=== PATIENT | female | born 1965 | race Caucasian/White ===

== ENCOUNTER 2017-01-20 21:39 | Emergency (ER) | payer OTHER ==
[~2017-01-20] VITALS: Ht 162.6 cm; Wt 90.7 kg
[~2017-01-20 21:39] MED LIST: AMLODIPINE BESY10 MG PO; ASPIRIN EC81 M1 PO; EFFIENT10 MG PO; LIPITOR 20 MG T20 M1 PO; METFORMIN HCL500 MG PO; NORVASC10 MG PO; PRINIVIL10 MG PO; PRINIVIL20 MG PO; PROVENTIL HFA6.7 G1 INH; TOPROL XL100 MG PO; TUSSIONEX PENN473 ML PO
[2017-01-20 22:47] LABS: ABSOLUTE NEUTROPHILS 5.1 thou/uL (1.4-8.2); BASOPHILS 0.7 % (0.0-2.0); EOSINOPHILS 1.6 % (0.0-3.0); HEMATOCRIT 40.6 % (37.0-47.0); HEMOGLOBIN 13.8 gm/dL (12.0-15.0); LYMPHOCYTES 36.9 % (24.0-44.0); MCH 30.8 pg (26.0-34.0); MCHC 33.9 g/dL (28.0-37.0); MCV 90.6 fL (80.0-100.0); MONOCYTES 8.3 % (1.0-8.0); PLATELET COUNT 213 thou/uL (150-400); POLYS 52.5 % (36.0-66.0); RBC 4.48 mil/uL (4.20-5.00); RDW 12.9 % (10.5-14.5); WBC 9.8 thou/uL (4.0-11.0)
[2017-01-20 22:48] LABS: MANUAL DIFF NO
[2017-01-20 23:02] LABS: APTT 21.3 Seconds (24.5-32.8); PROTIME 9.6 Seconds (9.3-11.4)
== END 2017-01-20 23:50 | disposition home or self-care (01) ==
LOC: ER 21:39
PROVIDERS: Physician Assistant
DX: M96.841 Postprocedural hematoma of a musculoskeletal structure following other procedure (principal); I10 Essential (primary) hypertension; Z90.49 Acquired absence of other specified parts of digestive tract; Z98.890 Other specified postprocedural states; Z96.21 Cochlear implant status; Z88.0 Allergy status to penicillin; Z88.8 Allergy status to other drugs, medicaments and biological substances

== ENCOUNTER 2017-05-18 06:12 | Emergency (ER) | payer OTHER ==
[~2017-05-18] VITALS: Ht 162.6 cm; Wt 86.2 kg
[2017-05-18] MEDS ORDERED: AZITHROMYCIN 2250 MG PO (07:06)
== END 2017-05-18 07:07 | disposition home or self-care (01) ==
LOC: ER 06:12
DX: J18.8 Other pneumonia, unspecified organism (principal); I10 Essential (primary) hypertension; Z96.21 Cochlear implant status; Z98.890 Other specified postprocedural states; Z88.1 Allergy status to other antibiotic agents; Z88.0 Allergy status to penicillin; Z95.5 Presence of coronary angioplasty implant and graft; Z79.82 Long term (current) use of aspirin

== ENCOUNTER 2018-09-16 15:51 | Emergency (ER) | payer OTHER ==
[~2018-09-16] VITALS: Ht 165.1 cm; Wt 104.3 kg
--- NOTE | ~2018-09-16 | EKG ---
[address] [place] [address] ELECTROCARDIOGRAM REPORT Name: GODFREYBLAIR Moore Room #: [facility]#: [id number] Admission: 09/16/18 Attend Phys: Discharge: 09/16/18 Date of : 69 Report #: [id number] THIS REPORT FOR: //name// [facility] ED Test Date: 2018-09-16 Test Time: 16:03:55 Pat Name: BLAIR DONAHUE Department: Room: Gender: F Windows Desktop Support: [facility] : 1965 Requested By: Raul Donaldson Order Number: [id number] MD: Maverick Alonzo Measurements Intervals [place] Rate: 82 P: 42 CO: 130 QRS: 18 QRSD: 97 T: 36 QT: 437 QTc: 511 Interpretive Statements Sinus rhythm Prolonged QT interval Nonspecific ST and T wave abnormality Compared to ECG 11/11/2016 07:05:30 Prolonged QT interval now present Electronically Signed On 09-17-2018 8:51:22 ROUTE SALES MANAGER by Maverick Alonzo [email or web address] <ELECTRONICALLY SIGNED> By: Maverick Alonzo MD, [facility] 09/17/18 0851 1603 160 Maverick Alonzo MD, FAC /EPI
[~2018-09-16 15:51] MED LIST changes: +AZITHROMYCIN 2250 MG PO
[2018-09-16 16:43] LABS: BASOPHILS 0.3 % (0.0-2.0); EOSINOPHILS 2.1 % (0.0-3.0); HEMATOCRIT 44.3 % (37.0-47.0); HEMOGLOBIN 15.4 gm/dL (12.0-15.0); LYMPHOCYTES 24.2 % (24.0-44.0); MCH 31.3 pg (26.0-34.0); MCHC 34.7 g/dL (28.0-37.0); MCV 90.2 fL (80.0-100.0); MONOCYTES 8.2 % (1.0-8.0); PLATELET COUNT 231 thou/uL (150-400); POLYS 65.2 % (36.0-66.0); RBC 4.91 mil/uL (4.20-5.00); RDW 12.5 % (10.5-14.5); WBC 7.7 thou/uL (4.0-11.0)
[2018-09-16 16:57] LABS: ANION GAP 11 mmol/L (7-16); BUN 16 mg/dL (7-18); CALCIUM 8.5 mg/dL (8.5-10.1); CHLORIDE 99 mmol/L (98-107); CO2 26 mmol/L (21-32); CREATININE 0.8 mg/dL (0.6-1.0); SODIUM 136 mmol/L (136-145)
[2018-09-16 17:01] LABS: GLUCOSE 331 mg/dL (74-106); POTASSIUM 3.7 mmol/L (3.5-5.1)
[2018-09-16 17:18] LABS: TROPONIN-I <0.06 ng/mL (<0.06)
[2018-09-16 19:01] VITALS: BP 159/101
== END 2018-09-16 19:03 | disposition left against medical advice (07) ==
LOC: ER 15:51
PROVIDERS: Emergency Medicine
DX: R07.89 Other chest pain (principal); I10 Essential (primary) hypertension; E11.9 Type 2 diabetes mellitus without complications; Z88.6 Allergy status to analgesic agent; Z88.0 Allergy status to penicillin; Z90.49 Acquired absence of other specified parts of digestive tract; Z95.5 Presence of coronary angioplasty implant and graft

== ENCOUNTER 2019-04-11 13:55 | Emergency (ER) | payer OTHER ==
[~2019-04-11] VITALS: Ht 162.6 cm; Wt 88.9 kg
[2019-04-11 14:59] LABS: HEMATOCRIT 42.5 % (37.0-47.0); HEMOGLOBIN 14.3 gm/dL (12.0-15.0); MCH 30.1 pg (26.0-34.0); MCHC 33.6 g/dL (28.0-37.0); MCV 89.7 fL (80.0-100.0); PLATELET COUNT 268 thou/uL (150-400); RBC 4.74 mil/uL (4.20-5.00); RDW 12.5 % (10.5-14.5); WBC 4.3 thou/uL (4.0-11.0)
[2019-04-11 15:06] LABS: ANION GAP 11 mmol/L (7-16); BUN 15 mg/dL (7-18); CALCIUM 8.8 mg/dL (8.5-10.1); CHLORIDE 96 mmol/L (98-107); CO2 24 mmol/L (21-32); CREATININE 1.1 mg/dL (0.6-1.0); GLUCOSE 334 mg/dL (74-106); POTASSIUM 3.8 mmol/L (3.5-5.1); SODIUM 131 mmol/L (136-145)
[2019-04-11 15:17] LABS: ALBUMIN 3.2 g/dL (3.4-5.0); MAGNESIUM 1.7 mg/dL (1.8-2.4); SGOT 50 U/L (15-37); SGPT 53 U/L (30-65); TOTAL BILIRUBIN 0.3 mg/dL (<0.1-1.0); TOTAL PROTEIN 8.3 g/dL (6.4-8.2); TROPONIN-I <0.06 ng/mL (<0.06)
[2019-04-11 15:34] LABS: ANISOCYTOSIS 1+; METAMYELOCYTES 1 %
[2019-04-11 16:14] LABS: URINE BILIRUBIN NEGATIVE (Negative); URINE BLOOD TRACE (Negative); URINE CLARITY CLOUDY; URINE COLOR YELLOW; URINE GLUCOSE-RANDOM* 2+ (Negative); URINE KETONES NEGATIVE (Negative); URINE LEUKOCYTES-REFLEX TRACE (Negative); URINE NITRITE-REFLEX NEGATIVE (Negative); URINE PROTEIN (DIPSTICK) 1+ (Negative); URINE SPECIFIC GRAVITY >= 1.030 (1.005-1.035); URINE UROBILINOGEN 0.2 E.U./dl (0.2-1.0)
[2019-04-11 16:21] LABS: CASTS None Seen /LPF (None Seen); SQUAMOUS 4-10 Moderate /LPF (0-3); YEAST-REFLEX Present (None Seen)
[2019-04-11 16:22] LABS: AMORPHOUS URATES Moderate /LPF (None Seen); BACTERIA-REFLEX 1-9 Few /HPF (None Seen); URINE RBC 0-2 Rare /HPF (0-2); URINE WBC-REFLEX 0-5 Rare /HPF (0-5)
[2019-04-11] MEDS ORDERED: CEFDINIR300 MG PO (16:46)
[2019-04-11] MEDS ORDERED: TRAMADOL 50 MG50 MG PO (16:46)
[2019-04-11] MEDS ORDERED: METFORMIN HCL500 MG PO (16:57)
[2019-04-11 18:00] VITALS: BP 115/62
--- NOTE | 2019-04-12 07:26 | EKG ---
[place] [address] [facility] [address] ELECTROCARDIOGRAM REPORT Name: BLAIR DONAHUE Room #: DEP [facility]#: [id number] ������������������ Admission: 04/11/19 ������������������ Attend Phys: Discharge: 04/11/19 ������������������ Date of : 69 Report #: [id number] ����������������������������������������������������������������� [id number] THIS REPORT FOR: //name// [facility] ED Test Date: 2019-04-11 Test Time: 15:42:37 Pat Name: BLAIR DONAHUE Department: Room: Gender: F Parts Counter Clerk: : 1965 Requested By: Guanako Archuleta Order Number: [id number] MD: Maverick Alonzo Measurements Intervals [place] Rate: 88 P: 55 MN: 122 QRS: 34 QRSD: 100 T: -67 QT: 355 QTc: 430 Interpretive Statements Sinus rhythm Nonspecific ST and T wave abnormality Compared to ECG 09/16/2018 16:03:55 No significant change was found Electronically Signed On 04-12-2019 7:26:08 CDT by Maverick Alonzo [email or web address] ��������������������������������������������� <ELECTRONICALLY SIGNED> ���������������������������������������� By: Maverick Alonzo MD, [facility] ��������������������������������������������� 04/12/19 0726 1542 154 Maverick Alonzo MD, FAC /EPI
== END 2019-04-11 18:01 | disposition home or self-care (01) ==
LOC: ER 13:55
PROVIDERS: Emergency Medicine
DX: L03.115 Cellulitis of right lower limb (principal); E11.9 Type 2 diabetes mellitus without complications; R74.0 Nonspecific elevation of levels of transaminase and lactic acid dehydrogenase [LDH]; I10 Essential (primary) hypertension; R05 Cough; R06.02 Shortness of breath; R06.2 Wheezing; M54.5 Low back pain; Z96.651 Presence of right artificial knee joint; Z88.6 Allergy status to analgesic agent; Z88.0 Allergy status to penicillin; Z90.49 Acquired absence of other specified parts of digestive tract

== ENCOUNTER 2019-04-14 15:41 | Emergency (ER) | payer OTHER ==
[~2019-04-14] VITALS: Ht 162.6 cm; Wt 85.3 kg
[~2019-04-14 15:41] MED LIST changes: +CEFDINIR300 MG PO; +TRAMADOL 50 MG50 MG PO
[2019-04-14 16:28] LABS: HEMATOCRIT 42.3 % (37.0-47.0); HEMOGLOBIN 14.3 gm/dL (12.0-15.0); MCHC 33.8 g/dL (28.0-37.0); MCV 88.6 fL (80.0-100.0); PLATELET COUNT 234 thou/uL (150-400); RBC 4.77 mil/uL (4.20-5.00); RDW 12.9 % (10.5-14.5); WBC 4.5 thou/uL (4.0-11.0)
[2019-04-14 16:34] LABS: ANION GAP 12 mmol/L (7-16); BUN 13 mg/dL (7-18); CALCIUM 9.4 mg/dL (8.5-10.1); CHLORIDE 95 mmol/L (98-107); CO2 25 mmol/L (21-32); CREATININE 0.8 mg/dL (0.6-1.0); GLUCOSE 285 mg/dL (74-106); POTASSIUM 3.6 mmol/L (3.5-5.1); SODIUM 132 mmol/L (136-145)
[2019-04-14 16:44] LABS: ALBUMIN 3.2 g/dL (3.4-5.0); DIRECT BILIRUBIN 0.1 mg/dL (<0.1-0.3); SGOT 37 U/L (15-37); SGPT 42 U/L (30-65); TOTAL BILIRUBIN 0.2 mg/dL (<0.1-1.0); TOTAL PROTEIN 8.6 g/dL (6.4-8.2); TROPONIN-I <0.06 ng/mL (<0.06)
[2019-04-14 16:52] LABS: URINE BILIRUBIN NEGATIVE (Negative); URINE BLOOD TRACE (Negative); URINE CLARITY CLEAR; URINE COLOR YELLOW; URINE GLUCOSE-RANDOM* 3+ (Negative); URINE KETONES NEGATIVE (Negative); URINE LEUKOCYTES-REFLEX NEGATIVE (Negative); URINE NITRITE-REFLEX NEGATIVE (Negative); URINE PROTEIN (DIPSTICK) TRACE (Negative); URINE SPECIFIC GRAVITY >= 1.030 (1.005-1.035); URINE UROBILINOGEN 0.2 E.U./dl (0.2-1.0)
[2019-04-14 16:57] LABS: ABSOLUTE NEUTROPHILS 2.8 thou/uL (1.4-8.2)
[2019-04-14] MEDS ORDERED: ANTIVERT25 MG PO (17:58)
[2019-04-14 18:05] VITALS: BP 150/78
--- NOTE | 2019-04-15 07:47 | EKG ---
[place] [address] [facility] [employer] [place] [address] ELECTROCARDIOGRAM REPORT Name: BLAIR DONAHUE Room #: DEP [facility]#: [id number] ������������������ Admission: 04/14/19 ������������������ Attend Phys: Discharge: 04/14/19 ������������������ Date of : 69 Report #: [id number] ����������������������������������������������������������������� [id number] THIS REPORT FOR: //name// [facility] ED Test Date: 2019-04-14 Test Time: 16:09:59 Pat Name: BLAIR DONAHUE Department: Room: Gender: F [employer] Sawyer: DINORAH : 1965 Requested By: Joanne Valentine Order Number: [id number] MD: Maverick Alonzo Measurements Intervals [place] Rate: 80 P: 43 CO: 134 QRS: 17 QRSD: 89 T: -11 QT: 382 QTc: 441 Interpretive Statements Sinus rhythm Nonspecific ST and T wave abnormality Compared to ECG 04/11/2019 15:42:37 No significant change was found Electronically Signed On 04-15-2019 7:46:57 CDT by Maverick Alonzo [email or web address] ��������������������������������������������� <ELECTRONICALLY SIGNED> ���������������������������������������� By: Maverick Alonzo MD, [facility] ��������������������������������������������� 04/15/19 0746 1609 1609 Maverick Alonzo MD, [facility] /EPI
== END 2019-04-14 18:05 | disposition home or self-care (01) ==
LOC: ER 15:41
PROVIDERS: Emergency Medicine
DX: I95.1 Orthostatic hypotension (principal); R42 Dizziness and giddiness; R73.9 Hyperglycemia, unspecified; I10 Essential (primary) hypertension; Z90.49 Acquired absence of other specified parts of digestive tract; Z95.5 Presence of coronary angioplasty implant and graft; Z88.0 Allergy status to penicillin; Z88.8 Allergy status to other drugs, medicaments and biological substances

== ENCOUNTER → 2019-10-11 | Outpatient (CLI) | payer OTHER ==
[~2019-10-11] MED LIST changes: +ANTIVERT25 MG PO; +CLEOCIN HCL150 MG PO
== END ==
LOC: SJCVC 15:31
DX: I25.10 Atherosclerotic heart disease of native coronary artery without angina pectoris (principal); R94.31 Abnormal electrocardiogram [ECG] [EKG]; I10 Essential (primary) hypertension; E11.9 Type 2 diabetes mellitus without complications; E78.5 Hyperlipidemia, unspecified; I25.2 Old myocardial infarction; Z79.82 Long term (current) use of aspirin; Z79.899 Other long term (current) drug therapy; Z88.0 Allergy status to penicillin; Z88.8 Allergy status to other drugs, medicaments and biological substances

== ENCOUNTER 2019-11-23 14:35 | Emergency (ER) | payer OTHER ==
[~2019-11-23] VITALS: Ht 162.6 cm; Wt 83.9 kg
[~2019-11-23 14:35] MED LIST changes: -CLEOCIN HCL150 MG PO
[2019-11-23] MEDS ORDERED: CLEOCIN HCL150 MG PO (15:07)
[2019-11-23 15:25] VITALS: BP 175/102
== END 2019-11-23 15:26 | disposition home or self-care (01) ==
LOC: ER 14:35
DX: K02.9 Dental caries, unspecified (principal); I10 Essential (primary) hypertension; Z90.49 Acquired absence of other specified parts of digestive tract; Z96.651 Presence of right artificial knee joint

== ENCOUNTER 2019-12-06 22:44 | Inpatient (IN) | payer OTHER ==
[~2019-12-06] VITALS: Ht 162.6 cm; Wt 81.6 kg
[~2019-12-06 22:44] MED LIST changes: +CLEOCIN HCL150 MG PO
[2019-12-06 22:45] VITALS: BP 150/78
[2019-12-06 23:36] LABS: ABSOLUTE NEUTROPHILS 4.1 thou/uL (1.4-8.2); BASOPHILS 1.5 % (0.0-2.0); EOSINOPHILS 4.1 % (0.0-3.0); HEMOGLOBIN 15.5 gm/dL (12.0-15.0); LYMPHOCYTES 30.9 % (24.0-44.0); MCH 30.3 pg (26.0-34.0); MCV 91.9 fL (80.0-100.0); MONOCYTES 6.5 % (1.0-8.0); PLATELET COUNT 229 thou/uL (150-400); RBC 5.12 mil/uL (4.20-5.00); RDW 12.5 % (10.5-14.5); WBC 7.2 thou/uL (4.0-11.0)
[2019-12-06 23:40] LABS: CALCIUM 8.9 mg/dL (8.5-10.1); CREATININE 0.9 mg/dL (0.6-1.0); POTASSIUM 4.3 mmol/L (3.5-5.1)
[2019-12-07 03:18] VITALS: BP 105/51
[2019-12-07 03:31] VITALS: BP 105/51
[2019-12-07 06:31] VITALS: BP 108/75; BP 118/71
[2019-12-07] MEDS ORDERED: MECLIZINE HCL25 MG PO (09:04)
[2019-12-07 09:56] VITALS: BP 118/72
[2019-12-07 09:57] VITALS: BP 108/75
--- NOTE | 2019-12-07 10:08 | NUR ---
ASSUMED CARE AT SHIFT CHANGE ASSESSMENT DOUMMENTED. DENEIS ANY PAIN OR DISCOMFOERT, AN VSS. S/B DR JOSHUA AND HE INSTRUCTED TO GIVE PATIENT MEDICATION BEFORE DISCHARGE, MEDS GIVEN AND UTILIZED THE OVERRIDE METHOD BECAUSE OF PYXIS NOT WORKING. PATIENT GIEVN WRITTEN DISCHARGE AND MEDICATION INSTRUCTION, AND PATIENT WILL BE DISCHARGED WHEN FAMILY GETS HERE.
--- NOTE | 2019-12-07 10:28 | EKG ---
[facility] [place] [address] ELECTROCARDIOGRAM REPORT Name: BLAIR DONAHUE Room #: 208-P ADM IN M.R.#: [id number] Admission: 12/07/19 Attend Phys: Jake Bray MD Discharge: Date of : 69 Report #: [id number] THIS REPORT FOR: cc: FAM - No family physician/PCP FAM - No family physician/PCP Maverick Alonzo MD [facility] ~ THIS REPORT FOR: //name// [facility] ED Test Date: 2019-12-06 Test Time: 23:59:13 Pat Name: BLAIR DONAHUE Department: Room: 208 Gender: F Alarm Security Or Surveillance Monitor: : 1965 Requested By: Ed Bunch Order Number: [id number] MD: Maverick Alonzo Measurements Intervals [place] Rate: 58 P: 45 MD: 137 QRS: 18 QRSD: 99 T: 21 QT: 428 QTc: 421 Interpretive Statements Sinus bradycardia Otherwise normal tracing Compared to ECG 04/14/2019 16:09:59 ST (T wave) deviation no longer present Electronically Signed On 12-07-2019 10:27:42 CLERK ANALYST by Maverick Alonzo [email or web address] <ELECTRONICALLY SIGNED> By: Maverick Alonzo MD, [facility] 12/07/19 1027 2359 2359 Maverick Alonzo MD, [facility] /EPI
== END 2019-12-07 10:35 | disposition home or self-care (01) | DRG 149 ==
LOC: ER 22:44 → EROBS 12-07 02:50 → 2N 12-07 03:34
PROVIDERS: Emergency Medicine; ADMIT Hospitalist
DX: H81.02 Meniere's disease, left ear (principal); I10 Essential (primary) hypertension; Z96.21 Cochlear implant status; I25.10 Atherosclerotic heart disease of native coronary artery without angina pectoris; E11.65 Type 2 diabetes mellitus with hyperglycemia; K08.109 Complete loss of teeth, unspecified cause, unspecified class; H91.90 Unspecified hearing loss, unspecified ear; Z82.49 Family history of ischemic heart disease and other diseases of the circulatory system; Z90.49 Acquired absence of other specified parts of digestive tract; Z95.5 Presence of coronary angioplasty implant and graft; Z79.84 Long term (current) use of oral hypoglycemic drugs; Z79.899 Other long term (current) drug therapy; Z79.82 Long term (current) use of aspirin; Z88.0 Allergy status to penicillin; Z88.8 Allergy status to other drugs, medicaments and biological substances
CPT/HCPCS: 10081

== ENCOUNTER 2021-02-16 11:27 | Observation (INO) | payer OTHER ==
[~2021-02-16] VITALS: Ht 162.6 cm; Wt 82.1 kg
[~2021-02-16 11:27] MED LIST changes: +LISINOPRIL10 MG PO; +MECLIZINE HCL25 MG PO; -PRINIVIL10 MG PO
[2021-02-16 12:17] VITALS: BP 163/122
[2021-02-16 12:17] LABS: HEMATOCRIT 44.6 % (37.0-47.0); HEMOGLOBIN 15.1 gm/dL (12.0-15.0); MCHC 33.9 g/dL (28.0-37.0); MCV 91.4 fL (80.0-100.0); RBC 4.88 mil/uL (4.20-5.00); RDW 12.5 % (10.5-14.5); WBC 6.8 thou/uL (4.0-11.0)
[2021-02-16 12:30] LABS: CALCIUM 9.1 mg/dL (8.5-10.1); CREATININE 0.7 mg/dL (0.6-1.0); POTASSIUM 3.8 mmol/L (3.5-5.1)
[2021-02-16 13:09] LABS: CHOLESTEROL 223 mg/dL (<200); HDL CHOLESTEROL 58 mg/dL (>40); LDL CHOLESTEROL 108 mg/dL (<100); TC:HDL 3.8 Ratio (Not establshd); TRIGLYCERIDE 287 mg/dL (<150); VLDL 57 mg/dL (<40)
[2021-02-16 16:38] VITALS: BP 129/71
--- NOTE | 2021-02-16 16:53 | NUR ---
PT ARRIVED TO THE UNIT AROUND 1620 WITH AN RN ESCORT AND HER DAUGHTER BY THE BEDSIDE, PT IS DEAF AND RN COMPLETED THE ADMISSION BEST POSSIBLE. NO COMPLAINT OF HEART PAIN OR ANY PAIN AT ARRIVAL. SITE OF ACCESS FOR PROCEDURE CLEAN DRY INTACT, NO HEMATOMA OR ABNORMALITIES NOTED. VS ARE NORMAL, MEDICATIONS GIVEN. PT WILL BE ABLE TO AMBULATE AROUND 191. RN FOLLOWING, WILL UPDATE NEEDED
[2021-02-16 16:55] VITALS: BP 117/84
--- NOTE | 2021-02-16 17:13 | CATHLAB ---
[facility] [place] [address] INVASIVE PROCEDURE REPORT Name: BLAIR DONAHUE Room #: 211-P ADM IN M.R.#: [id number] Admission: 02/16/21 Attend Phys: Maverick Alonzo MD, Discharge: Date of : 69 Report #: [id number] THIS REPORT FOR: cc: FAM - No family physician/PCP FAM - No family physician/PCP Maverick Alonzo MD [facility] ~ APPROVED REPORT Study performed: 02/16/2021 13:36:13 Patient Details Patient Status: Out-Patient Room #: The patient is a 55 year-old female Event Personnel Maverick Alonzo Ophthalmic Technologist, Gail Soares RTR Scrub, Edwin Torres RN RN, Ethel Gonzalez RTR, CENTRAL SUPPLY TECH Monitor, Юлия Clark RN RN, Jose David William RTR Scrub Procedures Performed Art Access - R femoral artery* Left Heart Cath w/or w/o Coronaries [id number] [facility] [address] [address] w/wo Plasty Single CIRC 768550 [place] [address] w/wo Plasty Single PDA [id number] 47839 Initial Mod Sed Same Phys/QHP Gr5y 037499 01322 Mod Sed Same Phys/QHP Ea 775640 Hemostasis w/ Mynx Indication Chest pain Procedure Narrative The patient was brought electively to the Cardiac Catheterization Laboratory and was prepped and draped in a sterile manner. The Right Groin^ was infiltrated with 1% Lidocaine subcutaneous anesthesia. A PINNACLE 6FR Sheath #[id number] sheath was inserted into the RFA^. Coronary angiography was performed using coronary diagnostic catheters. The right coronary system was accessed and visualized with a JR4 catheter. The left coronary system was accessed and visualized with a JL4 catheter. The left ventricle was accessed and visualized with a ANGLED PIGTAIL catheter. Left ventricular/Aortic Valve gradient assessed via catheter pullback. Left ventriculogram was performed in 30 degree projection. Closure device was deployed with a 6 Fr MYNXGRIP 6/7F #[id number]. The patient tolerated the procedure well and there were no complications associated with the procedure. There was no hematoma. [address] [address] INVASIVE PROCEDURE REPORT Name: JENNIFERJODIBLAIR Room #: 211-P [facility]#: [id number] Admission: 02/16/21 Attend Phys: Maverick Alonzo, Discharge: Date of : 69 Report #: [id number] Intraoperative Conscious Sedation Sedation start time: 14:21 Case end Time: 15:58 Fentanyl 100 mcg Versed 1 mg Fluoro Time: 16.30 minutes Dose: DAP 66875.10 cGycm2 3550 mGy Contrast Type and Amount: Omnipaque 385 ml Coronary Angiography The patient's coronary anatomy is right dominant. Diagnostic Cath Left Main Normal left main LAD Tubular 50% proximal LAD stenosis before a long mid LAD stent. 50% mid to distal intrastent mid LAD stenosis Diagonal 1 Moderately large first diagonal branch with 20-30% proximal plaquing Circumflex Circumflex was moderate in size and nondominant. The distal circumflex exhibited 99% mid vessel stenosis before the origin of the distal marginal branch. OM1 Small, distally arising marginal branch, angiographically normal Right Coronary Dominant right coronary with mild proximal plaquing. R PDA 95% proximal posterior descending branch stenosis followed by an 85% mid vessel stenosis RPLV 50-60% ostial posterior lateral branch stenosis Ramus Moderately large bifurcating ramus branch with mild 10-20% proximal plaquing Left Ventriculography The left ventricle is normal in size with normal contractility. The left ventricular ejection fraction is estimated to be 65-70%. Left ventricular wall motion abnormalities are not present. There is no mitral insufficiency. Hemodynamics The aortic pressure is 140/57 mmHg with a mean of 95 mmHg. The left ventricular pressure is 143/8 mmHg with a mean of mmHg. The left ventricular end diastolic pressure is 15 mmHg. PCI Technique Lesion Anticoagulation was achieved with Heparin, Integrilin. Patient was [facility] [address] [place] [address] INVASIVE PROCEDURE REPORT Name: BLAIR DONAHUE Room #: 211-P [facility] IN M.R.#: [id number] Admission: 02/16/21 Attend Phys: Maverick Alonzo, Discharge: Date of : 69 Report #: [id number] preloaded with Effient. Percutaneous coronary intervention was performed on the distal circumflex artery segment. The lesion stenosis prior to intervention was 99% with LAN 3 flow. A LAUNCHER 6FR EBU 4 #[id number] Guide Catheter was used to engage the left main ostium. A Luge Wire .014 x 182CM #[id number] Interventional Guidewire was used to cross the lesion. BALLOON DILATION A Balloon catheter Euphora RX 2.0 x12 #[id number] was inserted and inflated up to 12.00atm for 33seconds. Additional Inflation: 12.00atm for 29seconds. Additional Inflation: 14.00atm for 30seconds. Additional Inflation: 14 lenny for 27 seconds Additional Inflation: 16 lenny for 26 seconds Additional Inflation: 16 lenny for 24 seconds STENT DEPLOYMENT A drug-eluting stent RESOLUTE EVA RX 2.25 X 15 #[id number] was inserted and inflated up to 18.00atm for 30seconds. POST STENT DEPLOYMENT BALLOON DILATION A Balloon catheter TREK NC RX 2.5 X 12 #[id number] was inserted and inflated up to 16.00atm for 29seconds. Final angiography reveals 0 % stenosis with LAN 3 flow. PCI Technique Lesion 2 Percutaneous Coronary Intervention was performed on the right posterior descending artery. Patient was preloaded with Effient. A LAUNCHER 6FR JR 4 #[id number] Guide Catheter was used to engage the ostium. A Luge Wire .014 x 182CM #[id number] Interventional Guidewire was used to cross the lesion. Balloon Dilation A Balloon catheter TREK NC RX 2.5 X 12 #[id number] was inserted and inflated up to 10.00atm for 25seconds. Additional Inflation: 10.00atm for 20seconds. Additional Inflation: 16.00atm for 30seconds. Additional Inflation: 18 lenny for 19 seconds Additional Inflation: 16 lenny for 27 seconds Stent Deployment A drug-eluting stent RESOLUTE EVA RX 2.5 X 34 #[id number] was inserted and inflated up to 20.00atm for 30seconds. Post Stent Deployment Balloon Dilation A Balloon catheter TREK NC RX 2.5 X 12 #[id number] was inserted and inflated up to 20.00atm for 30seconds. Additional Inflation: 22.00atm for 30seconds. Additional Inflation: 22.00atm for 21seconds. [facility] [email or web address] [address] INVASIVE PROCEDURE REPORT Name: BLAIR DONAHUE Room #: 211-P ADM IN M.R.#: [id number] Admission: 02/16/21 Attend Phys: Maverick Alonzo, Discharge: Date of : 69 Report #: [id number] Additional Inflation: 24 lenny for 19 seconds Final angiography reveals 0 % stenosis with LNA 3 flow. Conclusion 1. Normal global and regional left ventricular systolic function. EF 65-70%. 2. Left main normal 3. Moderate 50% proximal LAD stenosis with long mid LAD stent with 50% intrastent plaquing 4. Distal circumflex 99% stenosis stented with a 2.25 x 15 mm Resolute, postdilated to 2.5 mm 5. Dominant right coronary with severe sequential posterior descending artery stenoses, stented with a 2.5 x 34 mm Resolute stent Recommendations Cardiac Rehabilitation Referral Aggressive Medical Therapy <ELECTRONICALLY SIGNED> By: Maverick Alonzo MD, [facility] 02/16/211712 12 12 Maverick Alonzo MD, FACC /INF
[2021-02-16] MEDS ORDERED: PRAVASTATIN SOD40 MG PO (17:29)
[2021-02-16] MEDS ORDERED: EFFIENT10 MG PO (17:29)
[2021-02-16] MEDS ORDERED: NORVASC5 MG PO (17:29)
[2021-02-16] MEDS ORDERED: METFORMIN HCL500 MG PO (17:29)
[2021-02-16] MEDS ORDERED: JARDIANCE25 MG PO (17:29)
[2021-02-16] MEDS ORDERED: COZAAR 50 MG TA50 M1 PO (17:29)
[2021-02-16 20:15] VITALS: BP 138/81
[2021-02-17 04:45] VITALS: BP 103/67
[2021-02-17 05:11] LABS: HEMATOCRIT 44.7 % (37.0-47.0); HEMOGLOBIN 15.1 gm/dL (12.0-15.0); MCH 31.2 pg (26.0-34.0); MCHC 33.8 g/dL (28.0-37.0); MCV 92.2 fL (80.0-100.0); RBC 4.85 mil/uL (4.20-5.00); RDW 12.8 % (10.5-14.5); WBC 8.7 thou/uL (4.0-11.0)
[2021-02-17 05:55] LABS: ALBUMIN 3.6 g/dL (3.4-5.0); ANION GAP 14 mmol/L (7-16); BUN 14 mg/dL (7-18); CALCIUM 9.2 mg/dL (8.5-10.1); CHLORIDE 97 mmol/L (98-107); CO2 23 mmol/L (21-32); CREATININE 0.9 mg/dL (0.6-1.0); GLUCOSE 203 mg/dL (74-106); POTASSIUM 3.6 mmol/L (3.5-5.1); SGOT 20 U/L (15-37); SGPT 35 U/L (14-59); SODIUM 134 mmol/L (136-145); TOTAL BILIRUBIN 0.9 mg/dL (0.2-1.0); TOTAL PROTEIN 7.2 g/dL (6.4-8.2); TROPONIN-I <0.06 ng/mL (<0.06)
--- NOTE | 2021-02-17 07:05 | NUR ---
PATIENTS CARES WERE ASSUMED AT SHIFT CHANGE. PATIENT WAS ASSESSED AND MEDS WERE PASSED. PATIENT REMAINS A STAND BY ASSIST FOR SAFTY REASONS. ROUNDS WERE MADE. THE BED ALARM WAS ON. THE BED IS IN A LOW AND LOCKED POSITION.
[2021-02-17 07:32] VITALS: BP 108/74
--- NOTE | 2021-02-17 07:58 | NUR ---
ASSUMED PT CARE AT 0700, PT RESTING AT THIS TIME. VSS. ASSESSMENT PERFORMED CHARTED. WILL CONTINUE TO MONITOR AND FOLLOW POC.
--- NOTE | 2021-02-17 08:44 | EKG ---
[address] [address] ELECTROCARDIOGRAM REPORT Name: BLAIR DONAHUE Room #: 211-P [facility]#: [id number] Admission: 02/16/21 Attend Phys: Maverick Alonzo MD, Discharge: Date of : [birth year] Report #: [id number] [facility] Test Date: 2021-02-16 Test Time: 17:01:03 Pat Name: BLAIR DONAHUE Department: Room: 211 Gender: F Phlebotomy Lab Assistant: FSCHWALBE : 1965 Requested By: Maverick Alonzo Order Number: [id number] MD: Alfred Badillo Measurements Intervals [place] Rate: 71 P: 44 MD: 135 QRS: 16 QRSD: 103 T: 19 QT: 425 QTc: 462 Interpretive Statements Sinus rhythm Baseline wander in lead(s) V4,V5 Compared to ECG 12/06/2019 23:59:13 Sinus bradycardia no longer present Electronically Signed On 02-17-2021 8:43:56 CDT by Alfred Badillo [email or web address] <ELECTRONICALLY SIGNED> By: Alfred Badillo MD, [facility] 02/17/21 0843 170 00 Alfred Badillo MD, [facility] /EPI
[2021-02-17 09:13] VITALS: BP 108/74
== END 2021-02-17 09:58 | disposition home or self-care (01) ==
LOC: SJCVC 11:27 → CATH 11:27 → 2N 16:34
PROVIDERS: ADMIT Internal Medicine; ATTEND Internal Medicine
DX: I25.10 Atherosclerotic heart disease of native coronary artery without angina pectoris (principal); E11.9 Type 2 diabetes mellitus without complications; I10 Essential (primary) hypertension; E78.5 Hyperlipidemia, unspecified; Z79.82 Long term (current) use of aspirin; Z79.84 Long term (current) use of oral hypoglycemic drugs; Z79.899 Other long term (current) drug therapy

== ENCOUNTER → 2021-03-23 | Outpatient (CLI) | payer OTHER ==
[~2021-03-23] MED LIST changes: +COZAAR 50 MG TA50 M1 PO; +JARDIANCE25 MG PO; +NORVASC5 MG PO; +PRAVASTATIN SOD40 MG PO
== END ==
LOC: SJCVC 09:53
PROVIDERS: ATTEND Internal Medicine
DX: R94.31 Abnormal electrocardiogram [ECG] [EKG] (principal); I25.10 Atherosclerotic heart disease of native coronary artery without angina pectoris; E78.5 Hyperlipidemia, unspecified; I10 Essential (primary) hypertension; E11.9 Type 2 diabetes mellitus without complications; I25.2 Old myocardial infarction; H91.90 Unspecified hearing loss, unspecified ear; Z91.19 Patient's noncompliance with other medical treatment and regimen; Z79.82 Long term (current) use of aspirin; Z79.899 Other long term (current) drug therapy; Z88.0 Allergy status to penicillin; Z88.8 Allergy status to other drugs, medicaments and biological substances; Z79.4 Long term (current) use of insulin

== ENCOUNTER 2021-04-19 18:22 | Emergency (ER) | payer OTHER ==
[~2021-04-19] VITALS: Ht 162.6 cm; Wt 84.8 kg
[2021-04-19 20:35] VITALS: BP 134/77
[2021-04-19 20:55] LABS: ABSOLUTE NEUTROPHILS 2.8 thou/uL (1.4-8.2); BASOPHILS 1.1 % (0.0-2.0); EOSINOPHILS 4.7 % (0.0-3.0); HEMATOCRIT 43.7 % (37.0-47.0); LYMPHOCYTES 42.7 % (24.0-44.0); MCH 31.7 pg (26.0-34.0); MCHC 34.2 g/dL (28.0-37.0); MCV 92.4 fL (80.0-100.0); MONOCYTES 8.8 % (1.0-8.0); PLATELET COUNT 241 thou/uL (150-400); POLYS 42.7 % (36.0-66.0); RBC 4.72 mil/uL (4.20-5.00); RDW 13.2 % (10.5-14.5); WBC 6.7 thou/uL (4.0-11.0)
[2021-04-19 21:05] LABS: CALCIUM 8.4 mg/dL (8.5-10.1); CREATININE 0.7 mg/dL (0.6-1.0); POTASSIUM 3.6 mmol/L (3.5-5.1)
[2021-04-19 21:11] LABS: ALBUMIN 3.5 g/dL (3.4-5.0); TOTAL BILIRUBIN 0.5 mg/dL (0.2-1.0); TOTAL PROTEIN 7.2 g/dL (6.4-8.2)
[2021-04-19 21:12] LABS: INR 0.88; PROTIME 9.7 Seconds (10.5-12.1)
== END 2021-04-19 22:00 | disposition home or self-care (01) ==
LOC: ER 18:22
PROVIDERS: Emergency Medicine
DX: S70.11XA Contusion of right thigh, initial encounter (principal); I10 Essential (primary) hypertension; Z98.890 Other specified postprocedural states; Z79.84 Long term (current) use of oral hypoglycemic drugs; Z79.899 Other long term (current) drug therapy; Z79.82 Long term (current) use of aspirin; Z88.6 Allergy status to analgesic agent; Z88.0 Allergy status to penicillin; X50.1XXA Overexertion from prolonged static or awkward postures, initial encounter; Y93.64 Activity, baseball; Y92.89 Other specified places as the place of occurrence of the external cause; Y99.8 Other external cause status

== ENCOUNTER → 2021-06-25 | Outpatient (CLI) | payer OTHER | LOC: SJCVC 13:24 | PROVIDERS: ATTEND Internal Medicine | DX: R94.31 Abnormal electrocardiogram [ECG] [EKG] (principal); I25.10 Atherosclerotic heart disease of native coronary artery without angina pectoris; E78.5 Hyperlipidemia, unspecified; I10 Essential (primary) hypertension; E11.9 Type 2 diabetes mellitus without complications; Z91.19 Patient's noncompliance with other medical treatment and regimen; Z79.82 Long term (current) use of aspirin; Z79.899 Other long term (current) drug therapy; Z88.0 Allergy status to penicillin; Z88.5 Allergy status to narcotic agent ==

== ENCOUNTER 2021-09-19 12:29 | Inpatient (IN) | payer OTHER ==
[~2021-09-19] VITALS: Ht 162.6 cm; Wt 82.1 kg
--- NOTE | ~2021-09-19 | HC ---
[facility] [place] [address] CONSULTATION Name: BLAIR DONAHUE Room #: 160-1 ADM IN M.R.#: [id number] Admission: 09/19/21 Attend Phys: Juanjose Tapia MD Discharge: Date of : 69 Report #: [id number] THIS REPORT FOR: cc: Sebastian Cantu MD, Ammar MD Forman,Alber Teague MD ~ DATE OF SERVICE: 09/20/2021 HISTORY OF PRESENT ILLNESS: The patient is a 56-year-old with coronary artery disease. The patient has begun to have exertional angina. The patient has had these symptoms in the past and today cardiac catheterization was done. This revealed 75% in-stent stenosis in the left anterior descending artery, 85% first marginal stenosis and 85% posterior descending artery in-stent stenosis. Left ventricular function is satisfactory. PAST MEDICAL HISTORY: The patient has a previous history of hyperlipidemia, hypertension, diabetes mellitus and coronary artery disease with prior stents placed in LAD, PDA and circumflex. CURRENT MEDICATIONS: Includes prasugrel, Cozaar, metformin, Jardiance. ALLERGIES: The patient has an allergy to PENICILLIN, states it is mild and the patient does not know exactly what the reaction is. Also allergy to ONDANSETRON, ZOFRAN. SOCIAL HISTORY: The patient lives in the [facility]. 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 REVIEW OF SYSTEMS: CONSTITUTIONAL: Denies fever or chills. EYES: Denies vision. HENT: Deafness, requiring fruit checker. CARDIAC: As mentioned exertional angina. RESPIRATORY: No shortness of breath, hemoptysis. GASTROINTESTINAL: No nausea, vomiting, diarrhea, blood. GENITOURINARY: No urgency, frequency, blood. MUSCULOSKELETAL: No current bone or joint pains. Has had a joint surgery in the past. NEUROLOGIC: No motor or sensory dysfunction other than the deafness. SKIN: No rash or infection. ENDOCRINE: No goiter, no tremor. HEMATOLOGIC: No bruisability, bleeding. PHYSICAL EXAMINATION: GENERAL: The patient is in bed, post-cardiac catheterization. We used an fruit checker for signing. [facility] [address] [place] [address] CONSULTATION Name: BLAIR DONAHUE Room #: 160-1 [place] [facility]#: [id number] Admission: 09/19/21 Attend Phys: Juanjose Tapia MD Discharge: Date of : 69 Report #: [id number] VITAL SIGNS: Temperature 36.2, heart rate 64, blood pressure 121/68, respiratory rate 18, O2 sat 100 on room air. HEENT: No scleral icterus. No arcus. NECK: No mass, no bruit. CHEST: Clear to auscultation. HEART: Rhythm regular, no murmur. ABDOMEN: Soft. EXTREMITIES: No clubbing, cyanosis or edema. VASCULAR: 2+ popliteal pulses bilaterally. No bone or joint asymmetry or deformity. SKIN: No rash or infection. PSYCHIATRIC: Oriented and appropriate and communicates quite well via the fruit checker. ASSESSMENT AND PLAN: I have reviewed the findings of the angiogram and I have discussed definitive treatment in the setting of 3-vessel disease, in-stent stenosis, diabetes mellitus. I have recommended bypass surgery. Risks and details, options, and alternatives were reviewed. Risks include but are not limited to bleeding, infection, anesthesia risks, heart and lung problems, stroke and . The patient understands all of this and wishes to proceed. We note the patient will be going home today and we will arrange for our typical preoperative studies and arrange for date for surgery. Thank you for the consult. By: 1352 220 Alber Elizalde MD /nt
[2021-09-19 12:33] VITALS: BP 126/74
[2021-09-19] MEDS ORDERED: CLOPIDOGREL75 MG PO (13:10)
[2021-09-19 13:32] LABS: ABSOLUTE NEUTROPHILS 4.9 thou/uL (1.4-8.2); BASOPHILS 0.8 % (0.0-2.0); EOSINOPHILS 4.9 % (0.0-3.0); HEMATOCRIT 45.9 % (37.0-47.0); HEMOGLOBIN 15.5 gm/dL (12.0-15.0); LYMPHOCYTES 26.4 % (24.0-44.0); MCH 30.9 pg (26.0-34.0); MCHC 33.8 g/dL (28.0-37.0); MCV 91.3 fL (80.0-100.0); MONOCYTES 7.5 % (1.0-8.0); PLATELET COUNT 244 thou/uL (150-400); POLYS 60.4 % (36.0-66.0); RBC 5.03 mil/uL (4.20-5.00); RDW 12.7 % (10.5-14.5); WBC 8.1 thou/uL (4.0-11.0)
[2021-09-19 13:45] LABS: CALCIUM 9.2 mg/dL (8.5-10.1); CREATININE 0.7 mg/dL (0.6-1.0); POTASSIUM 4.5 mmol/L (3.5-5.1)
[2021-09-19 13:55] LABS: ALBUMIN 3.4 g/dL (3.4-5.0); TOTAL BILIRUBIN 0.4 mg/dL (0.2-1.0); TOTAL PROTEIN 7.7 g/dL (6.4-8.2)
[2021-09-19 23:39] VITALS: BP 138/95
[2021-09-20 04:53] VITALS: BP 121/68
[2021-09-20 05:15] LABS: HEMATOCRIT 45.9 % (37.0-47.0); HEMOGLOBIN 15.5 gm/dL (12.0-15.0); MCH 31.1 pg (26.0-34.0); MCHC 33.6 g/dL (28.0-37.0); MCV 92.6 fL (80.0-100.0); RBC 4.96 mil/uL (4.20-5.00); RDW 12.7 % (10.5-14.5); WBC 6.6 thou/uL (4.0-11.0)
[2021-09-20 05:45] LABS: CALCIUM 8.6 mg/dL (8.5-10.1); CREATININE 0.7 mg/dL (0.6-1.0); POTASSIUM 3.5 mmol/L (3.5-5.1)
--- NOTE | 2021-09-20 08:55 | EKG ---
[place] [address] [facility] [place] [address] ELECTROCARDIOGRAM REPORT Name: BLAIR DONAHUE Room #: 170-17 ADM IN M.R.#: [id number] Admission: 09/19/21 Attend Phys: Juanjose Tapia MD Discharge: Date of : 69 Report #: [id number] [facility] ED Test Date: 2021-09-19 Test Time: 12:39:07 Pat Name: BLAIR DONAHUE Department: Room: 170 Gender: F Multimedia Producer: DELBERT : 1965 Requested By: Semaj Lozano Order Number: [id number] MD: Maverick Alonzo Measurements Intervals [place] Rate: 68 P: 37 IL: 132 QRS: -4 QRSD: 97 T: 6 QT: 407 QTc: 433 Interpretive Statements Sinus rhythm Nonspecific ST and T wave abnormality Compared to ECG 02/16/2021 17:01:[address] and T wave abnormality is now present Electronically Signed On 09-20-2021 8:55:06 EYEGLASS FRAMES POLISHER by Maverick Alonzo [email or web address] <ELECTRONICALLY SIGNED> By: Maverick Alonzo MD, [facility] 09/20/21 0855 1239 1239 Maverick Alonzo MD, FAC /EPI
[2021-09-20 09:18] VITALS: BP 121/88
[2021-09-20 15:39] LABS: URINE BILIRUBIN NEGATIVE (Negative); URINE BLOOD TRACE (Negative); URINE CLARITY CLEAR; URINE COLOR YELLOW; URINE GLUCOSE-RANDOM* 3+ (Negative); URINE KETONES TRACE (Negative); URINE LEUKOCYTES-REFLEX NEGATIVE (Negative); URINE NITRITE-REFLEX NEGATIVE (Negative); URINE PROTEIN (DIPSTICK) NEGATIVE (Negative); URINE SPECIFIC GRAVITY <= 1.005 (1.005-1.035); URINE UROBILINOGEN 0.2 E.U./dl (0.2-1.0)
[2021-09-20] MEDS ORDERED: LIPITOR 20 MG T20 M1 PO (15:51)
[2021-09-20 15:53] LABS: SQUAMOUS 4-10 Moderate /LPF (0-3)
[2021-09-20 15:53] LABS: APTT 23.1 Seconds (24.5-32.8); INR 0.93; PROTIME 10.2 Seconds (10.5-12.1)
[2021-09-20 15:54] LABS: BACTERIA-REFLEX None Seen /HPF (None Seen); CASTS None Seen /LPF (None Seen); CRYSTALS None Seen /LPF (None Seen); URINE RBC 3-10 Few /HPF (NONE SEEN); URINE WBC-REFLEX 0-5 Rare /HPF (0-5)
--- NOTE | 2021-09-20 16:35 | 2DMMODE ---
[facility] [address] [place] [address] 2 D/M-MODE ECHOCARDIOGRAM Name: BLAIR DONAHUE Room #: 160-1 ADM IN M.R.#: [id number] Admission: 09/19/21 Attend Phys: Juanjose Tapia MD Discharge: Date of : 69 Report #: [id number] THIS REPORT FOR: cc: Sebastian Cantu MD, Ammar MD Lundgren,Maverick Dennis MD [facility] ~ APPROVED REPORT Study performed: 09/20/2021 14:21:15 EXAM: Comprehensive 2D, Doppler, and color-flow Echocardiogram Patient Location: CV Holding Status: routine BSA: 1.88 HR: 76 bpm BP: 121/88 mmHg Rhythm: NSR Other Information Study Quality: Fair/no apical windows/off axis doppler. Technically limited study due to body habitus. Indications CAD, pre op CABG. Hx: PCI. 2D Dimensions IVSd: 10.01 (7-11mm) LVOT Diam: 19.60 (18-24mm) LVDd: 45.44 mm PWd: 9.06 (7-11mm) LVDs: 22.51 (25-40mm) Left Atrium: 34.06 (27-40mm) Aortic Root: 33.88 mm Aortic Valve AoV Peak Terrell.: 1.34 m/s AO Peak Gr.: 7.13 mmHg LVOT Max P.55 mmHg LVOT Max V: 0.80 m/s NIK Vmax: 1.80 cm2 Mitral Valve E/A Ratio: 0.6 MV Decel. Time: 213.56 ms [facility] [address] [place] [address] 2 D/M-MODE ECHOCARDIOGRAM Name: BLAIR DONAHUE Room #: 160-1 [facility] IN [facility]#: [id number] Admission: 09/19/21 Attend Phys: Juanjose Tapia MD Discharge: Date of : 69 Report #: [id number] MV E Max Terrell.: 0.50 m/s MV A Terrell.: 0.82 m/s MV PHT: 61.93 ms Pulmonary Valve PV Peak Terrell.: 1.04 m/s PV Peak Gr.: 4.35 mmHg Tricuspid Valve TR Peak Terrell.: 2.11 m/s RAP Estimate: 5.00 mmHg TR Peak Gr.: 18.00 mmHg PA Pressure: 23.00 mmHg Left Ventricle The left ventricle is normal size. There is normal LV segmental wall motion. There is normal left ventricular wall thickness. Left ventricular systolic function is normal. LVEF is 60-65%. Mild diastolic dysfunction Right Ventricle The right ventricle is normal size. The right ventricular systolic function is normal. Atria The left atrium size is normal. The right atrium size is normal. Aortic Valve The aortic valve is normal in structure. No aortic regurgitation is present. There is no aortic valvular stenosis. Mitral Valve Mild mitral annular calcification. There is no mitral valve regurgitation noted. No evidence of mitral valve stenosis. Tricuspid Valve The tricuspid valve is normal in structure. Trace tricuspid regurgitation. Estimated PAP is 23mmHg. Pulmonic Valve The pulmonary valve is normal in structure. There is no pulmonic valvular regurgitation. Great Vessels The aortic root is normal in size. The ascending aorta is normal in size. IVC is normal in size and collapses >50% with inspiration. [facility] [place] [address] 2 D/M-MODE ECHOCARDIOGRAM Name: BLAIR DONAHUE Room #: 160-1 ADM IN M.R.#: [id number] Admission: 09/19/21 Attend Phys: Junajose Tapia MD Discharge: Date of : 69 Report #: [id number] Pericardium There is no pericardial effusion. <Conclusion> Left ventricular systolic function is normal. There is normal LV segmental wall motion. LVEF is 60-65%. Mild diastolic dysfunction The aortic valve is normal in structure. No aortic regurgitation or stenosis Mild mitral annular calcification. No mitral valve regurgitation. Trace tricuspid regurgitation. Estimated pulmonary artery pressure of 23mmHg. No pericardial effusion. <ELECTRONICALLY SIGNED> By: Maverick Alonzo MD, [facility] 09/20/21 1635 1635 1635 Maverick Alonzo MD, FACC /INF
--- NOTE | 2021-09-20 16:43 | CATHLAB ---
[facility] [place] [address] INVASIVE PROCEDURE REPORT Name: BLAIR DONAHUE Room #: 160-1 ADM IN M.R.#: [id number] Admission: 09/19/21 Attend Phys: Juanjose Tapia MD Discharge: Date of : 69 Report #: [id number] THIS REPORT FOR: cc: Sebastian Cantu MD, Ammar MD Lundgren, Craig H. MD [facility] ~ APPROVED REPORT Study performed: 09/20/2021 10:19:24 Patient Details Patient Status: In-Patient Room #: The patient is a 56 year-old female Event Personnel Maverick Alonzo Lease Analyst, Ami Arrington RTR Monitor, Gail Soares RTR ScrubBrian Dexter RN hoe worker Performed Art Access - R femoral artery* Left Heart Cath w/or w/o Coronaries 3892139 [facility] Hemostasis w/ Mynx 35187 Initial Mod Sed Same Phys/QHP Gr5y 317859 41112 Mod Sed Same Phys/QHP Ea 271048 Indication Unstable angina (>72 hrs to = 7 days) Procedure Narrative The patient was brought electively to the Cardiac Catheterization Laboratory and was prepped and draped in a sterile manner. The Right Groin^ was infiltrated with 1% Lidocaine subcutaneous anesthesia. A PINNACLE 6FR Sheath #[id number] sheath was inserted into the RFA^. Coronary angiography was performed using coronary diagnostic catheters. The right coronary system was accessed and visualized with a JR4 catheter. The left coronary system was accessed and visualized with a JL4.5 catheter. The left ventricle was accessed and visualized with a ANGLED PIGTAIL catheter. Left ventriculogram was performed in 30 degree projection. Closure device was deployed with a Fr MYNXGRIP 6/7F #[id number]. The patient tolerated the procedure well and there were no complications associated with the procedure. There was no hematoma. Intraoperative Conscious Sedation Sedation start time: 10:47 Case end Time: [facility] [address] [place] [address] INVASIVE PROCEDURE REPORT Name: BLAIR DONAHUE Room #: 160-1 [facility] IN [facility]#: [id number] Admission: 09/19/21 Attend Phys: Juanjose Tapia MD Discharge: Date of : 69 Report #: [id number] 11:33 Fentanyl 50 mcg Versed 1 mg Fluoro Time: 5.00 minutes Dose: DAP 7989.70 cGycm2 1090 mGy Contrast Type and Amount: Omnipaque 155 ml Coronary Angiography The patient's coronary anatomy is right dominant. Diagnostic Cath Left Main Normal left main LAD 75% fairly long mid LAD stenosis after the first septal perforating branch 50% mid LAD intrastent stenosis. Severe ostial first septal perforating branch stenosis Diagonal 1 50-60% ostial and proximal D1 stenosis Circumflex 75% distal circumflex within a previously placed stent OM1 60% proximal OM1 stenosis OM2 Distally arising OM 2, mild plaquing Right Coronary Dominant right coronary R PDA Dominant right coronary with 80% proximal PDA intrastent stenosis RPLV 85% ostial PL branch stenosis Left Ventriculography The left ventricle is normal in size with normal contractility. The left ventricular ejection fraction is estimated to be 60-65%. Left ventricular wall motion abnormalities are not present. There is no mitral insufficiency. Hemodynamics The aortic pressure is 162/108 mmHg with a mean of 99 mmHg. The left ventricular pressure is 168/6 mmHg with a mean of mmHg. The left ventricular end diastolic pressure is 20 mmHg. Conclusion 1. Normal global and regional left ventricular systolic function. EF 65% 2. Normal left main [facility] [address] [place] [address] INVASIVE PROCEDURE REPORT Name: BLAIR DONAHUE Room #: 160-1 [facility] IN .#: [id number] Admission: 09/19/21 Attend Phys: Juanjose Tapia MD Discharge: Date of : 69 Report #: [id number] 3. Severe multivessel coronary disease. Right coronary dominant circulation <ELECTRONICALLY SIGNED> By: Maverick Alonzo MD, [facility] 09/20/21 1643 164 1643 Maverick Alonzo MD, FACC /INF
[2021-09-21 02:06] LABS: GLYCOHEMOGLOBIN (HGB A1C) 9.4 % (4.8-5.6)
[2021-09-21 08:56] VITALS: BP 121/88
== END 2021-09-20 16:00 | disposition home or self-care (01) | DRG 287 ==
LOC: ER 12:29 → TBACV 18:30 → EROBS 18:30 → TBACV 09-20 08:59
PROVIDERS: Emergency Medicine; Surgery Vascular Surgery; ADMIT Hospitalist; ATTEND Hospitalist
PROC: B2151ZZ Fluoroscopy of Left Heart using Low Osmolar Contrast (ICD-10-PCS; principal; 2021-09-20)
PROC: 4A023N7 Measurement of Cardiac Sampling and Pressure, Left Heart, Percutaneous Approach (ICD-10-PCS; principal; 2021-09-20)
PROC: B2111ZZ Fluoroscopy of Multiple Coronary Arteries using Low Osmolar Contrast (ICD-10-PCS; principal; 2021-09-20)
DX: I25.110 Atherosclerotic heart disease of native coronary artery with unstable angina pectoris (principal); I10 Essential (primary) hypertension; E78.5 Hyperlipidemia, unspecified; E11.9 Type 2 diabetes mellitus without complications; Z20.822 Contact with and (suspected) exposure to COVID-19; I25.10 Atherosclerotic heart disease of native coronary artery without angina pectoris; Z95.5 Presence of coronary angioplasty implant and graft; Z88.0 Allergy status to penicillin; Z88.8 Allergy status to other drugs, medicaments and biological substances; Z79.82 Long term (current) use of aspirin; Z79.899 Other long term (current) drug therapy; Z79.4 Long term (current) use of insulin
CPT/HCPCS: 10081

== ENCOUNTER 2021-10-04 10:16 | Inpatient (IN) | payer OTHER ==
[~2021-10-04] VITALS: Ht 162.6 cm; Wt 88.8 kg
[~2021-10-04 10:16] MED LIST changes: +CLOPIDOGREL75 MG PO; +GLUMETZA1000 PO; +PLAVIX 75 MG TA75 MG PO; +TRESIBA FL100 UNIT/1 SUBQ
[2021-10-19] VITALS (34 sets, daily range): BP systolic 92–130; BP diastolic 56–97
[2021-10-19 12:52] LABS: MCH 30.4 pg (26.0-34.0); MCHC 33.2 g/dL (28.0-37.0); MCV 91.7 fL (80.0-100.0); RDW 12.1 % (10.5-14.5); WBC 17.3 thou/uL (4.0-11.0)
[2021-10-19 12:54] LABS: HEMOGLOBIN 9.1 gm/dL (12.0-15.0)
[2021-10-19 12:55] LABS: HEMATOCRIT 27.5 % (37.0-47.0)
[2021-10-19 13:14] LABS: APTT 26.1 Seconds (24.5-32.8); INR 1.37; PROTIME 14.7 Seconds (10.5-12.1)
[2021-10-19 13:21] LABS: POC BE -6 mmol/L (-2.0 to +3.0); POC CA IONIZED 4.8 mg/dL (4.5-5.3); POC GLUCOSE 154 mg/dL (70-99); POC HEMOGLOBIN 9.5 g/dL (12.0-15.0); POC POTASSIUM 3.3 mmol/L (3.5-5.1); POC SODIUM 143 mmol/L (136-145); POC pCO2 40.3 mmHg (35.0-45.0); POC pH 7.304 (7.360-7.450)
[2021-10-19 13:46] LABS: POC BE 4 mmol/L (-2.0 to +3.0); POC CA IONIZED 4.5 mg/dL (4.5-5.3); POC GLUCOSE 248 mg/dL (70-99); POC HCO3 26.9 mmol/L (22.0-26.0); POC HEMOGLOBIN 14.6 g/dL (12.0-15.0); POC POTASSIUM 4.1 mmol/L (3.5-5.1); POC SODIUM 136 mmol/L (136-145); POC pCO2 34.7 mmHg (35.0-45.0); POC pH 7.497 (7.360-7.450)
[2021-10-19 13:46] LABS: POC BE -5 mmol/L (-2.0 to +3.0); POC CA IONIZED 5.3 mg/dL (4.5-5.3); POC GLUCOSE 172 mg/dL (70-99); POC HCO3 20.7 mmol/L (22.0-26.0); POC HEMOGLOBIN 9.2 g/dL (12.0-15.0); POC POTASSIUM 3.4 mmol/L (3.5-5.1); POC SODIUM 140 mmol/L (136-145); POC pH 7.368 (7.360-7.450)
[2021-10-19 13:46] LABS: POC BE -1 mmol/L (-2.0 to +3.0); POC CA IONIZED 3.7 mg/dL (4.5-5.3); POC GLUCOSE 230 mg/dL (70-99); POC HCO3 23.1 mmol/L (22.0-26.0); POC HEMOGLOBIN 10.2 g/dL (12.0-15.0); POC POTASSIUM 3.7 mmol/L (3.5-5.1); POC SODIUM 137 mmol/L (136-145); POC pCO2 32.7 mmHg (35.0-45.0); POC pH 7.457 (7.360-7.450)
[2021-10-19 13:46] LABS: POC BE -3 mmol/L (-2.0 to +3.0); POC GLUCOSE 237 mg/dL (70-99); POC HCO3 22.5 mmol/L (22.0-26.0); POC HEMOGLOBIN 9.9 g/dL (12.0-15.0); POC POTASSIUM 3.8 mmol/L (3.5-5.1); POC SODIUM 138 mmol/L (136-145); POC pCO2 39.4 mmHg (35.0-45.0); POC pH 7.365 (7.360-7.450)
[2021-10-19 13:46] LABS: POC BE -6 mmol/L (-2.0 to +3.0); POC GLUCOSE 161 mg/dL (70-99); POC HCO3 19.2 mmol/L (22.0-26.0); POC HEMOGLOBIN 8.8 g/dL (12.0-15.0); POC POTASSIUM 3.4 mmol/L (3.5-5.1); POC SODIUM 140 mmol/L (136-145); POC pCO2 33.2 mmHg (35.0-45.0); POC pH 7.371 (7.360-7.450)
[2021-10-19 13:46] LABS: POC BE -2 mmol/L (-2.0 to +3.0); POC CA IONIZED 4.5 mg/dL (4.5-5.3); POC GLUCOSE 233 mg/dL (70-99); POC HCO3 22.2 mmol/L (22.0-26.0); POC HEMOGLOBIN 14.6 g/dL (12.0-15.0); POC POTASSIUM 3.4 mmol/L (3.5-5.1); POC SODIUM 139 mmol/L (136-145); POC pCO2 33.8 mmHg (35.0-45.0); POC pH 7.426 (7.360-7.450)
[2021-10-19 13:46] LABS: POC BE 0 mmol/L (-2.0 to +3.0); POC GLUCOSE 216 mg/dL (70-99); POC HCO3 25.2 mmol/L (22.0-26.0); POC HEMOGLOBIN 9.2 g/dL (12.0-15.0); POC POTASSIUM 3.7 mmol/L (3.5-5.1); POC SODIUM 142 mmol/L (136-145); POC pCO2 42.1 mmHg (35.0-45.0); POC pH 7.385 (7.360-7.450)
[2021-10-19 14:16] LABS: HEMATOCRIT 33.3 % (37.0-47.0); MCH 30.5 pg (26.0-34.0); MCV 92.4 fL (80.0-100.0); RBC 3.6 mil/uL (4.20-5.00); RDW 12.1 % (10.5-14.5); WBC 18.5 thou/uL (4.0-11.0)
[2021-10-19 14:17] LABS: HCO3 17.2 mmol/L (22.0-26.0); PCO2 27.3 mmHg (35.0-45.0); PO2 92.9 mmHg (80.0-100.0); pH 7.418 (7.360-7.450); sO2 97.4 % (92.0-98.0)
[2021-10-19 14:25] LABS: CALCIUM 8.3 mg/dL (8.5-10.1); CREATININE 0.9 mg/dL (0.6-1.0); MAGNESIUM 2.8 mg/dL (1.8-2.4); POTASSIUM 3.5 mmol/L (3.5-5.1)
--- NOTE | 2021-10-19 14:29 | NUR ---
PT CAME FROM THE OR APPROXIMATELY AROUND 1350 WITH OR STAFF PRESENT AT THE TIME OF ARRIVAL, DOBUTAMINE WAS INITATED AT THE OR, HR WAS LOW, DURING TRANSPORT DOBUTAMINE TURNED OFF, WHEN TIME OF ARRIVAL, HR WAS LOW AGAIN, DOBUTAMINE TURNED BACK ON. PT REMAINS SEDATED COMING FROM THE OR, INSULIN GTT RUNNING A1C REPORTED AT 9, BLOOD GLUCOSE REVEAL 122, CURRENT DRIP RATE CONTINUING AND WILL ASSESS HOURLY. TITRATING ON DOBUTAMINE AT THIS TIME. WAS REPORTED PT WAS PACED BRIEFLY AT THE OR WELL. PT APPEARS RESTED, RN IS CONTINUING TO MONITOR AND WILL ASSESS HEMODYNAMICS CLOSELY. PT'S ART LINE PRESSURE BEING READ OFF OF FEM ART LINE AT THE TIME OF ARRIVAL AND CONTINUING ON FORTH UNLESS OTHERWISE STATED.
[2021-10-19 14:33] LABS: INR 1.17; PROTIME 12.7 Seconds (10.5-12.1)
--- NOTE | 2021-10-19 17:26 | EKG ---
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 : 1965 Requested By: Rafael Bradford Order Number: [id number] MD: Maverick Alonzo Measurements Intervals [place] Rate: 65 P: CT: QRS: 1 QRSD: 121 T: -5 QT: 516 QTc: 537 Interpretive Statements Junctional rhythm Nonspecific intraventricular conduction delay Inferior infarct, old Compared to ECG 09/19/2021 12:39:07 Junctional rhythm now present Nonspecific change in the ST and T wave segments Electronically Signed On 10-19-2021 17:26:25 DIRECTOR MARKETING COMMUNICATIONS by Maverick Alonzo [email or web address] <ELECTRONICALLY SIGNED> By: Maverick Alonzo MD, [facility] 10/19/21 1726 1436 1436 Maverick Alonzo MD, [facility] /EPI
[2021-10-19 18:22] LABS: CALCIUM 8.2 mg/dL (8.5-10.1); CREATININE 1.2 mg/dL (0.6-1.0)
[2021-10-19 18:28] LABS: POTASSIUM 2.8 mmol/L (3.5-5.1)
[2021-10-19 19:26] LABS: BE(vivo) -11.6 mmol/L (-2 to +3); HCO3 12.9 mmol/L (22.0-26.0); PCO2 26.1 mmHg (35.0-45.0); sO2 94.6 % (92.0-98.0)
[2021-10-19 19:27] LABS: pH 7.313 (7.360-7.450)
--- NOTE | 2021-10-19 19:54 | NUR ---
ASSUMED CARE OF PT AT 1900. PT PREVIOUSLY PLACED ON CPAP AT 1855. PT CONTINUUSLY NEEDING REMINDERS TO STAY CALM DURING CPAP TRIAL. PT SUCCESSFULLY EXTUBATED AT 1948 FOLLOWING CPAP TRIAL AND ABG RESULTS. WILL CONTINUE TO MONITOR.
[2021-10-19 20:36] LABS: BE(vivo) -9.4 mmol/L (-2 to +3); HCO3 15.3 mmol/L (22.0-26.0); PCO2 30.4 mmHg (35.0-45.0); PO2 66.7 mmHg (80.0-100.0); pH 7.321 (7.360-7.450); sO2 92.1 % (92.0-98.0)
[2021-10-20] VITALS (47 sets, daily range): BP systolic 72–137; BP diastolic 38–73
[2021-10-20 03:28] LABS: HEMATOCRIT 33.3 % (37.0-47.0); MCH 30.2 pg (26.0-34.0); MCHC 33.1 g/dL (28.0-37.0); MCV 91.4 fL (80.0-100.0); RBC 3.65 mil/uL (4.20-5.00); RDW 12.1 % (10.5-14.5); WBC 16.2 thou/uL (4.0-11.0)
[2021-10-20 05:34] LABS: CREATININE 0.6 mg/dL (0.6-1.0); MAGNESIUM 2.3 mg/dL (1.8-2.4); POTASSIUM 3.7 mmol/L (3.5-5.1)
--- NOTE | 2021-10-20 08:00 | EKG ---
[address] [employer] [place] [address] ELECTROCARDIOGRAM REPORT Name: BLAIR DONAHUE Room #: 248-P ADM IN M.R.#: [id number] Admission: 10/19/21 Attend Phys: Alber Elizalde MD Discharge: Date of : 69 Report #: [id number] [facility] Test Date: 2021-10-20 Test Time: 01:44:31 Pat Name: BLAIR DONAHUE Department: Room: 248 P Gender: F Clay Caster: : 1965 Requested By: Rafael Bradford Order Number: [id number] MD: Alfred Badillo Measurements Intervals [place] Rate: 129 P: [place]: QRS: 8 QRSD: 86 T: 177 QT: 285 QTc: 418 Interpretive Statements Atrial fibrillation Abnormal R-wave progression, early transition Inferior infarct, old Repol abnrm suggests ischemia, diffuse leads Compared to ECG 10/19/2021 14:36:59 Early repolarization now present Possible ischemia now present Junctional rhythm no longer present Intraventricular conduction delay no longer present Myocardial infarct finding still present Electronically Signed On 10-20-2021 8:00:21 WOOD MACHINE CARVER by Alfred Badillo [email or web address] <ELECTRONICALLY SIGNED> By: Alfred Badillo MD, [facility] 10/20/21 0800 3 Alfred Badillo MD, [facility] /EPI
--- NOTE | 2021-10-20 09:32 | NUR ---
RD consult received for diet education s/p CAGB on 10/19. Hx CAD, uncontrolled diabetes (A1C 9.4 in September), HTN, obesity, deafness. Diet newly advanced. Will address nutrition education needs once transferred out ICU and at more appropriate time.
--- NOTE | 2021-10-20 13:27 | NUR ---
56 year old female. She underwent a Coronary artery bypass x 4. 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 Independent at home. No hh or rehab in the past. No anticipated dc today Will cont. following as needed if dc needs arise. .
[2021-10-21] VITALS (52 sets, daily range): BP systolic 82–140; BP diastolic 39–84
[2021-10-21 05:00] LABS: HEMATOCRIT 30.5 % (37.0-47.0); HEMOGLOBIN 9.8 gm/dL (12.0-15.0); MCH 30.4 pg (26.0-34.0); MCHC 32.2 g/dL (28.0-37.0); MCV 94.4 fL (80.0-100.0); RBC 3.23 mil/uL (4.20-5.00); WBC 18.5 thou/uL (4.0-11.0)
[2021-10-21 05:22] LABS: CREATININE 0.8 mg/dL (0.6-1.0); POTASSIUM 4.3 mmol/L (3.5-5.1)
--- NOTE | 2021-10-21 14:38 | EKG ---
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: TITA : 1965 Requested By: Maverick Alonzo Order Number: [id number] MD: Alfred Badillo Measurements Intervals [place] Rate: 62 P: 62 ND: 93 QRS: -3 QRSD: 114 T: 49 QT: 555 QTc: 564 Interpretive Statements Sinus rhythm Short ND interval Probable left ventricular hypertrophy Inferior infarct, old Compared to ECG 10/20/2021 01:44:31 Short ND interval now present Prolonged QT interval now present Atrial fibrillation no longer present Early repolarization no longer present Possible ischemia no longer present Myocardial infarct finding still present Electronically Signed On 10-21-2021 14:38:06 COMMUNICATIONS ADMINISTRATOR by Alfred Badillo [email or web address] <ELECTRONICALLY SIGNED> By: Alfred Badillo MD, FAC 10/21/21 1438 1347 1347 Alfred Badillo MD, [facility] /EPI
[2021-10-22] VITALS (21 sets, daily range): BP systolic 99–149; BP diastolic 46–77
--- NOTE | 2021-10-22 15:13 | NUR ---
Chart review. S/P CABG, o2 per nasal cannula. No anticipated weekend discharge. Possible will be stable to move out of the ICU when MD orders. Will cont. following. She communicate via writing on white board.
--- NOTE | 2021-10-22 16:29 | NUR ---
I have reviewed the documentation by ANGELIA KIRKPATRICK from 10/22/21 to 10/22/21 and I concur with it. COOPER BAR, PT, DPT
--- NOTE | 2021-10-22 21:12 | NUR ---
RN to bedside at 1900, patient restless, impulsive. Removed peripheral IV's. Repeatedly removing nasal cannula from nose, and not listening to nursing staff.
[2021-10-23] VITALS (21 sets, daily range): BP systolic 81–151; BP diastolic 40–82
[2021-10-23 03:48] LABS: CALCIUM 8.2 mg/dL (8.5-10.1); CREATININE 0.7 mg/dL (0.6-1.0); POTASSIUM 3.6 mmol/L (3.5-5.1)
[2021-10-23 03:56] LABS: HEMATOCRIT 30.6 % (37.0-47.0); HEMOGLOBIN 9.9 gm/dL (12.0-15.0); MCH 30.5 pg (26.0-34.0); MCHC 32.4 g/dL (28.0-37.0); MCV 94.1 fL (80.0-100.0); RBC 3.25 mil/uL (4.20-5.00); RDW 12.7 % (10.5-14.5); WBC 14.9 thou/uL (4.0-11.0)
--- NOTE | 2021-10-23 09:38 | O ---
[facility] [place] [address] OPERATIVE REPORT Name: BLAIR DONAHUE Room #: 248-P ADM IN M.R.#: [id number] Admission: 10/19/21 Attend Phys: Alber Elizalde MD Discharge: Date of : 69 Report #: [id number] THIS REPORT FOR: cc: FAM - Family physician unknown FAM - Family physician unknown Alber Elizalde MD ~ cc: Maverick Alonzo MD [facility] DATE OF SERVICE: 10/19/2021 PREOPERATIVE DIAGNOSIS: Coronary artery disease. POSTOPERATIVE DIAGNOSIS: Coronary artery disease. OPERATIONS: Coronary artery bypass x4 including left internal mammary artery to left anterior descending artery, saphenous vein to diagonal and ramus intermedius and saphenous vein to posterior descending artery and endoscopic harvest, left greater saphenous vein, and placement of right femoral arterial line. SURGEON: Alber Elizalde MD SKY CAP: RHINA Romero. ANESTHESIA: General. INDICATIONS: The patient is a 56-year-old seen for Dr. Alonzo. The patient presents with angina. Catheterization demonstrates severe 3-vessel coronary disease including in-stent stenoses in long LAD and PDA stents. Left ventricular function is satisfactory. FINDINGS AND TECHNIQUE: After general anesthesia was established, saphenous vein was harvested using an endoscopic approach and prepared to use as a conduit. Exposure was obtained through median sternotomy. Left internal mammary artery was harvested from chest wall. Pericardial well was made. Cannulation sutures were placed. Heparin was given. Aorta was cannulated. Right atrium was cannulated. Cardioplegia needle was positioned in the aortic root. Retrograde cardioplegic catheter was placed in the coronary sinus. Cardiopulmonary bypass was established. It should be mentioned that prior to beginning cardiopulmonary bypass, we noticed that the arterial line was not consistently reflecting true pressure and therefore, a right femoral arterial line was placed using Seldinger technique. [facility] [address] [place] [address] OPERATIVE REPORT Name: BLAIR DONAHUE Room #: 248-P [facility] IN M.R.#: [id number] Admission: 10/19/21 Attend Phys: Alber Elizalde MD Discharge: Date of : 69 Report #: [id number] Cardiopulmonary bypass was established. Aorta was crossclamped. Antegrade and retrograde cardioplegia were given. Ice was poured in the pericardial well. The heart was stopped. During electromechanical arrest, the distal anastomoses were performed. An end-to-side anastomosis was made between vein and the posterior descending artery. The PDA had a long series of stents in it and distal portion was calcified, and there was only a short area where it was safe to perform this bypass. Cold cardioplegia was given. Separate segment of vein was sewn in end-to-side fashion to the ramus intermedius. This was an intramyocardial vessel. We looked for the distal circumflex marginal, but I thought it was too small where presented itself for bypass. The same segment of vein was sewn in end-to-side fashion to the diagonal artery. Cold cardioplegia was given. Left internal mammary artery was sewn in end-to-side fashion to the left anterior descending artery. Similarly, the LAD had a long series of stents in it and was calcified distally and there was only a short area where that was soft enough and long enough for the anastomosis. Cold cardioplegia was given. Two proximal anastomoses were performed. It should be mentioned that the mammary anastomosis was checked with the temperature technique and the Doppler. Cold cardioplegia was given. Two proximal anastomoses were performed. When these were complete, warm retrograde cardioplegia was given, followed by warm continuous blood through the coronary sinus. When this infusion was complete, the crossclamp was removed. De-airing maneuvers were performed. The anastomoses were inspected and found to be satisfactory. As the patient warmed, nice cardiac activity resumed, chest tubes and pacing wires were placed. A marker was placed around the proximal anastomosis. When the patient was warm, he was weaned from cardiopulmonary bypass. Venous cannula was removed. Protamine was given. The aortic cannula was removed. Flows were measured in the bypass grafts. When hemostasis was satisfactory, chest was irrigated with antibiotic solution and closed in the usual fashion. The patient was taken to the Intensive Care Unit in good condition, having tolerated the procedure well. All counts were reported as correct. <ELECTRONICALLY SIGNED> By: Alber Elizalde MD 10/23/21 0938 1554 1705 Alber Elizalde MD /nt
--- NOTE | 2021-10-23 10:59 | EKG ---
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
--- NOTE | 2021-10-23 16:18 | NUR ---
PT SATS 90-92% ON 2L NC. O2 WAS TITRATED OFF, BUT PT DID NOT TOLERATE AND SATS WENT DOWN TO 87-89%. PT FREQUENTLY PLACES NC ON HEAD AND HAS BEEN REDIRECTED TO KEEP IT IN HER NOSE. APPETITE HAS BEEN POOR TODAY. PT ATE A FEW BITES OF BREAKFAST AND REFUSED LUNCH COMPLETELY. PT IS MILDLY WEAK BUT STEADY ON FEET WHEN AMBULATING TO BEDSIDE COMMODE AND CHAIR. HOWEVER, PT HAS BEEN IMPULSIVE AND FREQUENTLY ATTEMTS TO GET UP WITHOUT ASSISTANCE. THIS RN HAS REDIRECTED PT TO USE THE CALL LIGHT, BUT PT CONTINUES TO GET UP BY HERSELF. BED ALARM AND CHAIR ALARM ARE ON. PT C/O PAIN AT INCISION SITE THIS MORNING AND WAS GIVEN PRN PAIN MEDS. PT HAS DENIED NEED FOR PAIN MEDS AND HAS NOT EXPRESSED PAIN OR DISCOMFORT SINCE. PATIENT IS SLOWLY PROGRESSING TOWARD GOALS. WILL CONTINUE TO MONITOR AND FOLLOW POC.
[2021-10-24] VITALS (8 sets, daily range): BP systolic 99–151; BP diastolic 54–93
[2021-10-24 03:31] LABS: HEMATOCRIT 31.2 % (37.0-47.0); HEMOGLOBIN 10.3 gm/dL (12.0-15.0); MCHC 32.9 g/dL (28.0-37.0); MCV 94.2 fL (80.0-100.0); RBC 3.31 mil/uL (4.20-5.00); RDW 12.8 % (10.5-14.5); WBC 11.6 thou/uL (4.0-11.0)
[2021-10-24 04:09] LABS: ALBUMIN 3.2 g/dL (3.4-5.0); CREATININE 0.8 mg/dL (0.6-1.0); PHOSPHORUS 2.7 mg/dL (2.5-4.9); POTASSIUM 3.5 mmol/L (3.5-5.1)
--- NOTE | 2021-10-24 20:08 | NUR ---
PT IS CCU STATUS. PT HAS REMAINED IMPULSIVE AND ATTEMPTS TO GET UP UNASSISTED. PT IS ON 2L NC BUT TAKES IT OUT OF NOSE FREQUENTLY. PT DAUGHTER WAS AT BEDSIDE FROM 1300 UNTIL 1600. PT ATE SMALL BITES FROM LUNCH AND DINNER BUT APPETITE HAS BEEN POOR. VS STABLE. WILL CONTINUE TO MONITOR.
[2021-10-25 01:45] VITALS: BP 154/81
[2021-10-25 04:06] VITALS: BP 153/75
[2021-10-25 07:36] VITALS: BP 149/79
[2021-10-25 11:14] VITALS: BP 150/72
[2021-10-25] MEDS ORDERED: COZAAR 50 MG TA50 M1 PO (13:24)
[2021-10-25] MEDS ORDERED: PACERONE 200 M200 M1 PO (13:24)
[2021-10-25 13:29] VITALS: BP 150/72
--- NOTE | 2021-10-25 13:45 | NUR ---
DISCHARGE ORDERS ENTERED. RN REVIEWED DISCHARGE SUMMERY WITH PT. WAITING ON RIDE HOME.
--- NOTE | 2021-10-25 14:24 | NUR ---
Pt dcing home today with her dtr. Outpt f/u with CTS anticipated. No cm interventions indicated at this time.
== END 2021-10-25 15:03 | disposition home or self-care (01) | DRG 235 ==
LOC: PRE → ICU 10-19 06:22 → TBA 10-19 06:22 → PRE 10-19 10:32 → ICU 10-19 14:14 → PRE 10-19 15:11 → ICU 10-23 17:14
PROVIDERS: Physician Assistant; ADMIT Surgery Vascular Surgery; ATTEND Surgery Vascular Surgery
PROC: 06BQ4ZZ Excision of Left Saphenous Vein, Percutaneous Endoscopic Approach (ICD-10-PCS; principal; 2021-10-19)
PROC: 05HY33Z Insertion of Infusion Device into Upper Vein, Percutaneous Approach (ICD-10-PCS; principal; 2021-10-19)
PROC: 021209W Bypass Coronary Artery, Three Arteries from Aorta with Autologous Venous Tissue, Open Approach (ICD-10-PCS; principal; 2021-10-19)
PROC: 02100Z9 Bypass Coronary Artery, One Artery from Left Internal Mammary, Open Approach (ICD-10-PCS; principal; 2021-10-19)
PROC: 04HY32Z Insertion of Monitoring Device into Lower Artery, Percutaneous Approach (ICD-10-PCS; principal; 2021-10-19)
PROC: 5A1221Z Performance of Cardiac Output, Continuous (ICD-10-PCS; principal; 2021-10-19)
PROC: 5A0935A Assistance with Respiratory Ventilation, Less than 24 Consecutive Hours, High Flow/Velocity Cannula (ICD-10-PCS; 2021-10-20)
PROC: 5A0935A Assistance with Respiratory Ventilation, Less than 24 Consecutive Hours, High Flow/Velocity Cannula (ICD-10-PCS; 2021-10-21)
DX: I25.10 Atherosclerotic heart disease of native coronary artery without angina pectoris (principal); N17.0 Acute kidney failure with tubular necrosis; I48.0 Paroxysmal atrial fibrillation; Z20.822 Contact with and (suspected) exposure to COVID-19; E11.9 Type 2 diabetes mellitus without complications; I10 Essential (primary) hypertension; E78.5 Hyperlipidemia, unspecified; Z60.2 Problems related to living alone; Z96.651 Presence of right artificial knee joint; H90.5 Unspecified sensorineural hearing loss; D69.6 Thrombocytopenia, unspecified; Z79.01 Long term (current) use of anticoagulants; Z95.5 Presence of coronary angioplasty implant and graft; Z88.0 Allergy status to penicillin; Z79.82 Long term (current) use of aspirin; Z79.899 Other long term (current) drug therapy; Z79.4 Long term (current) use of insulin
CPT/HCPCS: 10078; 10203; 10204; 47000; 47001; 47002; 47297; 48889; 50010; 50249; 50643; 50668; 50953; 51301; 52259; 52287; 53327; 53358; 54118; 55415; 56455; 56524; 56525; 56526; 56527; 56528; 56531; 56534; 56668; 56719; 56760; 56898; 57093; 57167; 58585; 58901; 58918; 62110; 62950; 65090; 65120; 65135

== ENCOUNTER → 2021-10-08 | Outpatient (CLI) | payer OTHER ==
[~2021-10-08] MED LIST changes: +PACERONE 200 M200 M1 PO
== END ==
LOC: LAB 09-23 14:18 → PAC 09-23 14:53
PROVIDERS: ATTEND Surgery Vascular Surgery
DX: Z01.812 Encounter for preprocedural laboratory examination (principal); Z20.822 Contact with and (suspected) exposure to COVID-19